=== PATIENT | male | born 1940 | race Caucasian/White ===

== ENCOUNTER 2019-04-14 19:50 | Inpatient (IN) | payer OTHER, MEDICARE ==
[~2019-04-14] VITALS: Ht 180.3 cm; Wt 132.4 kg
[~2019-04-14 19:50] MED LIST: ADVIL100 MG PO; ALBU2.5V5 NEB; ATOR40TA PO; Aspir 8181 MG PO; BUDE6HFA; BUDE6HFA INH; Benazepril HCl40 MG PO; CIPR500 PO; DILT120 PO; FLUSAL5005 IH; FURO20 PO; HYDCHL12.5 PO; LEVFLO500 PO; MONT10T PO; POLY500 PO; PRED20 PO; TIOT18 INH; TORSE20 PO; Toprol Xl25 MG PO; Vitamin D2000 UNIT PO; Xalatan2.5 ML BOTHEYES
[2019-04-14 20:02] LABS: PCO2 Arterial 96.6 mmHg (35-45); PO2 Arterial 64.1 mmHg (80-100)
[2019-04-14] MEDS ORDERED: Ventolin/Prove6.7 GM INH (20:27)
[2019-04-14] MEDS ORDERED: MONT10T PO (20:27)
[2019-04-14 20:28] LABS: BASOPHILS ABSOLUTE AUTO 0.02 K/mm3 (0.00-0.23); BASOPHILS PERCENT AUTO 0 % (0-2); EOSINOPHILS ABSOLUTE AUTO 0.16 K/mm3 (0.00-0.68); EOSINOPHILS PERCENT AUTO 2 % (0-6); Hematocrit 38.5 % (37.0-53.0); Hemoglobin 11.5 g/dL (13.5-17.5); IMMATURE GRAN ABSOLUTE AUTO 0.03 K/mm3 (0.00-0.10); IMMATURE GRAN PERCENT AUTO 0 % (0-1); LYMPHOCYTES ABSOLUTE AUTO 1.25 K/mm3 (0.84-5.20); LYMPHOCYTES PERCENT AUTO 17 % (21-46); MONOCYTES ABSOLUTE AUTO 0.87 K/mm3 (0.16-1.47); MONOCYTES PERCENT AUTO 12 % (4-13); Mean Corpuscular HGB 30.4 pg (26.0-34.0); Mean Corpuscular HGB Conc 29.9 g/dL (31.5-36.5); Mean Corpuscular Volume 102 fL (80-100); Mean Platelet Volume 9.6 fL (9.1-12.4); NEUTROPHILS ABSOLUTE AUTO 5.04 K/mm3 (1.96-9.15); NEUTROPHILS PERCENT AUTO 68 % (41-73); Platelet Count 143 K/mm3 (150-400); RDW Coefficient Variation 13.1 % (11.7-14.2); RDW Standard Deviation 48.7 fL (35.1-46.3); Red Blood Cell Count 3.78 M/mm3 (4.30-5.90); White Blood Cell Count 7.37 K/mm3 (4.00-11.30)
[2019-04-14 20:48] LABS: Alanine Aminotransfer (ALT/SGP 31 U/L (12-78); Albumin, Blood 3.3 g/dL (3.4-5.0); Albumin/Globulin Ratio 0.9 (0.8-1.8); Alk Phos 82 U/L (50-136); Aspartate Aminotrans (AST/SGOT 21 U/L (12-37); Bilirubin, Total 0.4 mg/dL (0.1-1.0); Blood Urea Nitrogen 27 mg/dL (8-24); Bun/Creatinine Ratio 23.1 (12.0-20.0); Calcium, Blood 9.1 mg/dL (8.5-10.1); Chloride, Blood 97 mmol/L (98-108); Creatinine, Blood 1.17 mg/dL (0.60-1.20); Globulin, Blood 3.7 g/dL (2.2-4.0); Glomerular Filtration Rate >60 (60-); Glucose, Blood 166 mg/dL (70-99); Sodium, Blood 142 mmol/L (136-145)
[2019-04-14 20:51] LABS: Anion Gap Unable to Calculate mmol/L (6-16)
[2019-04-14 20:53] LABS: CO2, Blood >45 mmol/L (21-32)
[2019-04-14] MEDS ORDERED: FIBER CAPSULES PO (21:01)
[2019-04-14] MEDS ORDERED: Flonase 0.05% N16 GM (21:02)
--- NOTE | 2019-04-14 21:15 | NUR ---
ASSESSMENT/ADMIT PT ADMITTED VIA ER TO ICU 04. ARRIVED VIA GURNEY. PT AWAKE A&O, ANSWERING QUESTIONS APPROP. TRANSFERED TO BED BY STAFF WITH SLIDER SHEET. PT ON BIPAP / FIO2 30%. LUNGS DECREASED THROUGHOUT WITH SLIGHT EXP WHEEZES TO UPPER LOBES. PT PLACED ON 4 LITERS VIA NC FOR ORAL CARE. PT SWABING MOUTH WITH SWAB WITHOUT DIFFICULTY. SOB WITH ACTIVITY NOTED. HEART RATE 100% PACED IN THE 60'S. DENIES CHEST PAIN OR PRESSURE. BP STABLE. 3+ PITTING EDEMA TO BILAT LOWER EXT NOTED. BT+ ABD SOFT AND NONTENDER, OBESE. DENIES N/V. IV 20G TO RIGHT FOREARM AND 20G TO LEFT WRIST SALINE LOCKED. TO BEDSIDE. PT REQUESTING WATER, STATES,"I NEED TO HAVE SOMETHING TO DRINK, I'M JUST SO DRY".
[2019-04-14 22:11] LABS: Magnesium, Blood 1.7 mg/dL (1.6-2.4); Phosphorus, Blood 3.5 mg/dL (2.5-4.9); Troponin I 0.024 ng/mL (0.000-0.040)
--- NOTE | 2019-04-15 05:48 | NUR ---
SHIFT SUMMARY PT ADMITTED VIA ER. PT USED BIPAP MOST OF THE NIGHT WITH BREAKS. BIPAP SETTING 14/7 FIO2 45%. 4-5 LITERS VIA NC FOR BREAKS. PT MOVING AND REPOSITIONING SELF IN BED. DENIES PAIN OR DISCOMFORT. PT REPORTS IMPROVED WORK OF BREATING DURING THE NIGHT. VSS. NEW IV PLACED. LUNGS CONT DECREASED THROUGHOUT. RESP RATE 16-20. REPORT TO ON COMING NURSE
[2019-04-15 05:56] LABS: BASOPHILS ABSOLUTE AUTO 0.01 K/mm3 (0.00-0.23); BASOPHILS PERCENT AUTO 0 % (0-2); EOSINOPHILS PERCENT AUTO 0 % (0-6); Hemoglobin 11.3 g/dL (13.5-17.5); IMMATURE GRAN ABSOLUTE AUTO 0.05 K/mm3 (0.00-0.10); IMMATURE GRAN PERCENT AUTO 1 % (0-1); LYMPHOCYTES PERCENT AUTO 7 % (21-46); MONOCYTES ABSOLUTE AUTO 0.15 K/mm3 (0.16-1.47); MONOCYTES PERCENT AUTO 2 % (4-13); Mean Corpuscular HGB 30.3 pg (26.0-34.0); Mean Corpuscular HGB Conc 29.7 g/dL (31.5-36.5); Mean Corpuscular Volume 102 fL (80-100); Mean Platelet Volume 10.1 fL (9.1-12.4); NEUTROPHILS ABSOLUTE AUTO 6.97 K/mm3 (1.96-9.15); NEUTROPHILS PERCENT AUTO 91 % (41-73); Platelet Count 147 K/mm3 (150-400); RDW Standard Deviation 48.2 fL (35.1-46.3); Red Blood Cell Count 3.73 M/mm3 (4.30-5.90); White Blood Cell Count 7.68 K/mm3 (4.00-11.30)
[2019-04-15 06:09] LABS: Anion Gap 0 mmol/L (6-16); Blood Urea Nitrogen 28 mg/dL (8-24); Bun/Creatinine Ratio 25.2 (12.0-20.0); CO2, Blood 44 mmol/L (21-32); Calcium, Blood 9.2 mg/dL (8.5-10.1); Chloride, Blood 98 mmol/L (98-108); Creatinine, Blood 1.11 mg/dL (0.60-1.20); Glomerular Filtration Rate >60 (60-); Glucose, Blood 170 mg/dL (70-99); Potassium, Blood 4.5 mmol/L (3.5-5.5); Sodium, Blood 142 mmol/L (136-145)
--- NOTE | 2019-04-15 07:51 | NUR ---
CALL PLACED TO DR DICKENS This RN notified RT Mallory of stat ABG. She requests this RN calls Dr Orozco to clarify if she would like this obtained while pt is on BiPAP or on NC. Provider states she would like the ABG obtained right now, regardless if he is on BiPAP or NC
--- NOTE | 2019-04-15 07:56 | NUR ---
UPDATE GIVEN TO PT'S SPOUSE Pt's spouse, Zoie, called unit requesting update. Update provided. Requested she brings in pt's home BiPAP. Zoie states she will be in to see pt around 0900.
--- NOTE | 2019-04-15 08:00 | NUR ---
BEGINNING OF SHIFT Assumed care of pt at 0700. Bedside report received from Ember NEIL. Pt on BiPAP, given break by RT. PT tolerated break and ate clear liquid breakfast without difficulty. Pt educated on oral care and use of suction swab for oral care. Pt verbalized and demonstrated understanding. When not wearing BiPAP, pt is on 5 LPM NC, which is his home O2 usage. Pt's lungs are dim t/o on auscultation. Denies cough. Bed in lowest position. Call light in reach. Pt denies need at this time.
[2019-04-15 08:07] LABS: pH Blood Arterial 7.33 (7.35-7.45)
[2019-04-15 08:08] LABS: PCO2 Arterial 86.2 mmHg (35-45)
--- NOTE | 2019-04-15 10:25 | NUR ---
FAMILY IN TO SEE PT Pt's daughter states she will bring pt's BiPAP in.
--- NOTE | 2019-04-15 17:30 | NUR ---
Spiritual Care inital note: Per admit trigger, I was tasked with providing information to pt and family about ACP. took advanced Directive packet, but did not appear very interested. Pt states he feels better today, and both are hoping he will continue to improve. Ruchi really engaged in conversation. they allowed me to pray for continued healing. Unit Assembler Services will remain available.
--- NOTE | 2019-04-15 18:37 | NUR ---
SUMMARY Pt has tolerated 5 LPM NC for majority of shift. Pt has worn BiPAP for less than three hours this shift. This RN placed pt back on BiPAP at 1820, SpO2 83% and dyspnea with exertion after using urinal while in bed. PT has been 100% paced per monitor, no ectopy this shift. Bed in lowest position. Call light in reach. Will continue to closely monitor until care handoff and bedside report with oncoming RN.
--- NOTE | 2019-04-15 19:51 | NUR ---
BEGIN SHIFT PT FULLY ALERT, ORIENTED, ON BIPAP 16/, 35%. TOOK OFF BIPAP AND PLACED ON 5L NC FOR ASSESSMENT, TOLERATED WELL FOR ABOUT 20 MINUTES. AFTER URINATING SPO2 DOWN TO 87%, REPLACED BIPAP. SPO2 NOW UP TO 95%, RECOVERED QUICKLY. NO C/O PAIN. VSS. WILL CONTINUE TO MONITOR.
[2019-04-16 03:36] LABS: BASOPHILS ABSOLUTE AUTO 0.01 K/mm3 (0.00-0.23); BASOPHILS PERCENT AUTO 0 % (0-2); EOSINOPHILS PERCENT AUTO 0 % (0-6); Hematocrit 35.2 % (37.0-53.0); Hemoglobin 10.8 g/dL (13.5-17.5); IMMATURE GRAN ABSOLUTE AUTO 0.02 K/mm3 (0.00-0.10); IMMATURE GRAN PERCENT AUTO 0 % (0-1); LYMPHOCYTES ABSOLUTE AUTO 0.52 K/mm3 (0.84-5.20); LYMPHOCYTES PERCENT AUTO 7 % (21-46); MONOCYTES ABSOLUTE AUTO 0.15 K/mm3 (0.16-1.47); MONOCYTES PERCENT AUTO 2 % (4-13); Mean Corpuscular HGB Conc 30.7 g/dL (31.5-36.5); Mean Corpuscular Volume 101 fL (80-100); Mean Platelet Volume 10.1 fL (9.1-12.4); NEUTROPHILS ABSOLUTE AUTO 7.16 K/mm3 (1.96-9.15); NEUTROPHILS PERCENT AUTO 91 % (41-73); Platelet Count 150 K/mm3 (150-400); RDW Standard Deviation 47.9 fL (35.1-46.3); Red Blood Cell Count 3.48 M/mm3 (4.30-5.90); White Blood Cell Count 7.86 K/mm3 (4.00-11.30)
[2019-04-16 03:50] LABS: Bun/Creatinine Ratio 25.8 (12.0-20.0); Calcium, Blood 9.2 mg/dL (8.5-10.1); Creatinine, Blood 1.28 mg/dL (0.60-1.20); Potassium, Blood 4.6 mmol/L (3.5-5.5)
[2019-04-16 04:04] LABS: Base Excess Venous 22.3 mmol/L; PCO2 Venous 81.8 mmHg (38-42); PO2 Venous 153 mmHg (38-42); pH Blood Venous 7.37 (7.34-7.37)
--- NOTE | 2019-04-16 04:32 | NUR ---
SHIFT SUMMARY PATIENT SLEPT OFF AND ON THROUGH NIGHT. VSS. GAVE TYLENOL ONCE FOR BACK PAIN WITH ADEQUATE RELIEF. ON BIPAP THROUGH MOST OF NIGHT, IS CURRENTLY ON 5LNC DRINKING DECAF COFFEE. ASSESSMENT OTHERWISE UNCHANGED FROM WHAT IS CHARTED. WILL CONTINUE TO MONITOR.
[2019-04-16 05:01] LABS: PCO2 Arterial 80.9 mmHg (35-45); pH Blood Arterial 7.37 (7.35-7.45)
[2019-04-16 05:02] LABS: PO2 Arterial 78.9 mmHg (80-100)
--- NOTE | 2019-04-16 07:33 | NUR ---
ASSUMED CARE: RT AT BEDSIDE WHEN THIS RT ENTERED ROOM. RT STATES HE TURNED O2 DOWN TO 4L WHICH IS PT'S BASELINE. NO ACUTE NEEDS OR CONCERNS.
--- NOTE | 2019-04-16 08:29 | NUR ---
DISCUSSED PT WITH DR BAEZ. GOAL IS TO HAVE PT UP AND MOVING AND IF ABLE TO TOLERATE THEN WEAN DOWN STEROIDS. PLAN IS FOR DC NEXT DAY OR SO. STATUS CHANGE TO MED WITH TELE. SUPERVISOR BLUEPRINTING AND PHOTOCOPY AWARE
--- NOTE | 2019-04-16 11:43 | NUR ---
PT TRANSFERRED TO ROOM 327. REPORT CALLED TO CHARLY NEIL. PT TRANSFERRED VIA WHEEL CHAIR. FAMILY AT BEDSIDE AND AWARE OF TRANSFER.
--- NOTE | 2019-04-16 11:45 | NUR ---
PATIENT ARRIVED TO THE UNIT VIA WHEELCHAIR AT 1140. PATIENT TRANSFERRED TO THE BED BY 1PA. HE IS SITTING UP IN BED.
--- NOTE | 2019-04-16 17:41 | NUR ---
PATIENT IS ALERT AND ORIENTED AND COOPERATIVE WITH CARE. HE CALLS APPROPRIATELY. HIS WAS AT THE BEDSIDE FOR MOST OF THE DAY. HE GETS SOB WITH EXERTION. HE WALKS TO THE BATHROOM WITH 1PA, FWW AND GAIT BELT. LS ARE WHEEZY IN THE UPPER LOBES AND COARSE IN THE BASES. HE IS ON CONTINUOUS PULSE OX. HAS A CPAP FOR NIGHT. RT IS WORKING WITH THE PATIENT. HE GOT UP TO THE RECLINER TODAY. 4L [address] WILL CONTINUE TO MONITOR
--- NOTE | 2019-04-17 01:36 | NUR ---
PT COMPLAINING OF INCREASED BACK PAIN. PROVIDR CALLED AND LORTAB WAS ORDERED. PT MEDICATED AND WAS ABLE TO FALL ASLEEP.
[2019-04-17 05:05] LABS: PCO2 Arterial 77.4 mmHg (35-45); PO2 Arterial 69.4 mmHg (80-100); pH Blood Arterial 7.38 (7.35-7.45)
--- NOTE | 2019-04-17 05:17 | NUR ---
SHIFT SUMMARY PT CONTINUES TO RELY ON USE OF BIPAP TO MAINTAIN HIS SPO2 ABOVE 88%. PT BECOMES SOB WITH LITTLE EXERTION. PT REQUIRES TO SIT UP WITH HOB ALL THE WAY UP TO BREATHE COMFORTABLY. PT HAS WORN HIS BIPAP T/O SHIFT. PT DID COMPLAIN OF INCREASED BACK PAIN AND LORTAB WAS ORDERED. PT TX WITH LORTAB WITH PAIN RELIEF AND PT WAS ABLE TO SLEEP FOR SEVERAL HOURS. PT IS ABLE TO USE URINAL AT BEDSIDE WITH SOME EFFORT. PT ABG WAS DONE THIS AM, CO2 REMAINS HIGH BUT IS IMPROVED FROM YESTERDAY. PT IS AWAKE AND ON BIPAP W/O COMPLAINT. CALL LIGHT IN REACH.
[2019-04-17 05:31] LABS: BASOPHILS ABSOLUTE AUTO 0.01 K/mm3 (0.00-0.23); BASOPHILS PERCENT AUTO 0 % (0-2); EOSINOPHILS PERCENT AUTO 0 % (0-6); Hematocrit 38.5 % (37.0-53.0); Hemoglobin 11.7 g/dL (13.5-17.5); IMMATURE GRAN ABSOLUTE AUTO 0.05 K/mm3 (0.00-0.10); IMMATURE GRAN PERCENT AUTO 1 % (0-1); LYMPHOCYTES ABSOLUTE AUTO 0.48 K/mm3 (0.84-5.20); LYMPHOCYTES PERCENT AUTO 5 % (21-46); MONOCYTES ABSOLUTE AUTO 0.43 K/mm3 (0.16-1.47); MONOCYTES PERCENT AUTO 4 % (4-13); Mean Corpuscular HGB 30.5 pg (26.0-34.0); Mean Corpuscular HGB Conc 30.4 g/dL (31.5-36.5); Mean Corpuscular Volume 101 fL (80-100); Mean Platelet Volume 10.1 fL (9.1-12.4); NEUTROPHILS ABSOLUTE AUTO 9.05 K/mm3 (1.96-9.15); NEUTROPHILS PERCENT AUTO 90 % (41-73); Platelet Count 176 K/mm3 (150-400); RDW Coefficient Variation 13.2 % (11.7-14.2); RDW Standard Deviation 48.6 fL (35.1-46.3); Red Blood Cell Count 3.83 M/mm3 (4.30-5.90); White Blood Cell Count 10.02 K/mm3 (4.00-11.30)
[2019-04-17 05:46] LABS: Calcium, Blood 9.6 mg/dL (8.5-10.1); Creatinine, Blood 1.26 mg/dL (0.60-1.20); Potassium, Blood 4.3 mmol/L (3.5-5.5)
[2019-04-17] MEDS ORDERED: POTA8 PO (10:52)
--- NOTE | 2019-04-17 16:19 | NUR ---
PT OXYGEN SATURATION DECREASED TO THE LOW 80'S WHILE USING THE URINAL IN BED. SWITCHED PT TO BIPAP AND INCREASED O2 LEVELS. SPOKE WITH DR. BAEZ ABOUT CONCERNS WITH PT O2 SATURATION, ORDERED CBG.
--- NOTE | 2019-04-17 17:02 | NUR ---
PT A/O, PLESANT AND COOPERATIVE. PT USING O2 VIA NASAL CANULA AND BIPAP. CONTINUING WITH RT. WORKED WITH PHYSICAL THERAPY TODAY, OXYGEN SATURATION DROPPED WITH EXERTION. PT USING URINAL. DENIES CHEST PAIN AT THIS TIME.
[2019-04-18 05:09] LABS: PCO2 Arterial 89 mmHg (35-45); PO2 Arterial 107 mmHg (80-100); pH Blood Arterial 7.34 (7.35-7.45)
--- NOTE | 2019-04-18 06:30 | NUR ---
SHIFT SUMMARY SLEPT WELL T/O NIGHT. AOX4. DENIES N/V. HAS DYSPNEA W/ANY EXERTION, WHILE STANDING OR MOVING IN BED. CONT PULSE OX DROPS TO LOW 80'S W/5L NC. HAD PT PLACE BIPAP BACK ON & PULSE OX BACK TO 90-95%. REPORTS LOWER BACK PAIN & WAS MEDICATED 1X PER ORDERS. ZHAO FROM RT NOTIFIED ME OF CRITICAL CO2 THIS AM @89, PT HAS BEEN TRENDING IN CRITICAL LEVELS, NOTIFIED RAILROAD ACCOUNTANT & WILL PASS ON TO DAY SHIFT. TELE IN PLACE, RUNNING VENTRICULAR PACED W/HR 70. 1-2 ASSIST W/STANDING SINCE SPO2 DROPS LOW. CALL LIGHT IN REACH & PT USES APPROPRIATELY.
--- NOTE | 2019-04-18 17:59 | NUR ---
Initial Visit: Palliative Care Consult for Advanced Care Planning. Pt is A&O and reports 10/10 pain in his back. Bedside nurse Prachi arrives and administers pain medication. Pt reports significant dyspnea that worsens with speaking and other exertion. Pt also reports anxiety due to SOB. Engaged in therapeutic discussion regarding Advanced Care Planning. Pt reports he is of [employer] and lives at home with his . Pt is a and this RN thanked him for his service. Dyspnea noted throughout visit. Pt reports needing assistance with dressing, bathing, and ambulation. Pt reports he is able to ambulate approximately 10 to 15 feet at home before becoming severly SOB requiring rest for recovery. He reports receiving caregiver assistance through the [place]. A caregiver assists for 3 hours a day 3 days a week. He expresses concerns that he needs more assistance. Engaged in discussion regarding disease process. Assessed Pt's knowledge of his COPD. Pt responds by stating "It's a lung disease that is going to kill me". Encouraged Pt to have routine conversations with his doctor regarding his disease process in order to plan accordingly. Pt states "[facility] "I'm tired of suffering". Discussed hospice as an option and encourage Pt to have conversation with and family including doctor to help guide this decision. Educated on hospice philosophy. Pt requests for palliative care to come back in the morning and to have further discussion with him when his is present. He states he won't be able to remember everything. Pt's dinner has arrived and this RN ended visit. Pt expressess apreciation of visit. Discussed case with bedside nurse Prachi. Prachi reports Pt would benefit from additional cargiver support and requests for data recovery planner to contact [place] user interface designer program to assist with additional hours. Called and spoke with Dr Barth and discussed case including Pt's interest in hospice. Palliative Care will remain available.
--- NOTE | 2019-04-18 19:17 | NUR ---
SHIFT SUMMARY PT HAS HAD NO ACUTE CHANGES THIS SHIFT, HAD O2 EVAL AND EDUCATED PT & ON NEW NEEDS & IMPORTANCE OF PLACING NC IN MOUTH W/AMBULATING. PUT NOTE ON BOARD & PASSED ONTO SENIOR LINUX UNIX ENGINEER. MEDICATED FOR BACK PAIN 03/18, PT STATES HE IS COMFORTABLE AT THIS TIME, BEDSIDE REPORT TO NOC RN, PT BEDRESTING, NO NEEDS AT THIS TIME, CALL LIGHT IN REACH.
[2019-04-19 05:12] LABS: PCO2 Arterial 81.3 mmHg (35-45); PO2 Arterial 94.9 mmHg (80-100); pH Blood Arterial 7.37 (7.35-7.45)
--- NOTE | 2019-04-19 07:20 | NUR ---
SHIFT SUMMARY PT A/O C/O PAIN IN BACK AND MEDICATED PER EMAR. 5L NC AND USED BIPAP C 5L BLED IN. SBA WITH URINAL USE. DESATS WITH ANY ACTIVITY. DR ELAINE OK'ED IT TO USE HOSPITAL BIPAP SO WE CAN CHANGE THE SETTING DUE TO HIGH CO2 LEVEL. PASS ON TO DAY RN.
[2019-04-19] MEDS ORDERED: HYDR1TAB94 PO (14:23)
[2019-04-19] MEDS ORDERED: MELATONIN5 M1 PO (14:24)
[2019-04-19] MEDS ORDERED: PRED20 (14:26)
--- NOTE | 2019-04-19 16:11 | NUR ---
SHIFT SUMMARY PT AWAKE DURING SHIFT REPORT, LYING HF ON BIPAP. PT IS A&O, ON 5L O2. PT UP TO EOB TO VOID, USING URINAL WITH SBA. DR BAEZ IN TO SEE PT THIS AM. NEW ORDERS FOR RT TO PROVIDE EXERCISE OXIMETRY NANCY PRIOR TO D/C. RT CALLED TO HAVE PT PLACED ON RA PER PROTOCOL. PT'S BIOX DECREASED TO 75% ON RA. RT COMPLETED EXERCISE OXIMETRY PER ORDERS. DR BAEZ NOTIFIED AND D/C ORDERS PLACED. PT WAS TO GO HOME WITH H/H, BUT AFTER TALKING WITH CM AND PALLATIVE CARE PT REQUESTED TO GO HOME ON HOSPICE. ARRANGEMENTS MADE, O2 ORDERED AND TO BE DELIVERED BY [facility] [place]. WENT HOME TO RECEIVE O2 AND PT POLICY ANALYST BY TRANSPORT, VIA W/C. PT'S HOME W/C WALKED OUT BY ELECTRONIC SCALE SUBASSEMBLER TO GO HOME WITH PT. ALL OTHER BELONGINGS TOOK HOME WITH HER ALONG WITH PT'S BIPAP. [facility] PER PT REQUEST. TOP CAGER TO SEE PT AT HOME TOMORROW TO DETERMINE PT NEEDS AND SIGN PAPERS. TELE AND IV SITE D/C'D WNL'S. D/C INSTRUCTIONS DISCUSSED WITH PT AND SENT HOME IN PACKET WITH PT. PT LEFT VIA W/C AND TRANSPORT.
== END 2019-04-19 16:05 | disposition home health service (06) | DRG 189 ==
LOC: ER 19:50 → ICUE 20:15 → ICUW 20:15 → ICUE 20:50 → MEDS 04-16 11:31
PROVIDERS: Emergency Medicine; Internal Medicine; Internal Medicine Critical Care Medicine; Nurse Practitioner Acute Care; ADMIT Internal Medicine
DX: J96.21 Acute and chronic respiratory failure with hypoxia (principal); J44.1 Chronic obstructive pulmonary disease with (acute) exacerbation; I50.30 Unspecified diastolic (congestive) heart failure; J96.22 Acute and chronic respiratory failure with hypercapnia; G47.33 Obstructive sleep apnea (adult) (pediatric); E66.01 Morbid (severe) obesity due to excess calories; I25.10 Atherosclerotic heart disease of native coronary artery without angina pectoris; I11.0 Hypertensive heart disease with heart failure; E78.5 Hyperlipidemia, unspecified; Z95.0 Presence of cardiac pacemaker; I35.0 Nonrheumatic aortic (valve) stenosis; Z51.5 Encounter for palliative care; Z99.81 Dependence on supplemental oxygen; Z87.891 Personal history of nicotine dependence
CPT/HCPCS: 36415; 36600; 71045; 80048; 80053; 82803; 83735; 83880; 84100; 84145; 84484; 85025; 93005; 93010; 94640; 94660; 94761; 94762; 96374; 97110; 97116; 97162; 97165; 97530; 99285-25; A9270; A9270-GY; J1644; J2930